=== PATIENT | male | born 1960 | race Caucasian/White ===

== ENCOUNTER 2020-12-17 14:24 | Outpatient (REF) | payer BC, SELFPAY ==
[2020-12-17 15:47] LABS: Prostate Specific Antigen Scr 3.59 ng/mL (<0.05-4.0)
== END 2020-12-17 14:25 | disposition home or self-care (01) ==
LOC: HO.LAB 14:24
PROVIDERS: PCP Family Medicine; Visit Provider Family Medicine
DX: R35.1 Nocturia (principal)
CPT/HCPCS: 36415; 84153

== ENCOUNTER 2021-03-16 08:11 | Outpatient (REF) | payer BC, SELFPAY ==
[2021-03-16 09:46] LABS: Alanine Aminotransferase 34 U/L (0-40); Aspartate Amino Transferase 30 U/L (5-37)
== END 2021-03-16 08:12 | disposition home or self-care (01) ==
LOC: HO.LAB 08:11
PROVIDERS: PCP Family Medicine; Visit Provider Family Medicine
DX: R79.89 Other specified abnormal findings of blood chemistry (principal)
CPT/HCPCS: 36415; 84450; 84460